=== PATIENT | male | born 1975 | race Caucasian/White ===

== ENCOUNTER 2018-02-01 09:08 | Emergency (ER) | payer OTHER ==
[~2018-02-01] VITALS: Ht 190.5 cm; Wt 86.0 kg
[2018-02-01] MEDS ORDERED: MORPHINE SULFATE 4 MG/ML CPJ (NOT FOR IM USE) IV STA (10:25)
[2018-02-01] MEDS ORDERED: ONDANSETRON HCL 4MG/2ML VIAL IV STA (10:25)
[2018-02-01 11:54] LABS: HEMATOCRIT. 44.9 % (42.0-52.0); HEMOGLOBIN. 15.3 g/dL (14.0-18.0); MEAN CORPUSCULAR HEMOGLOBIN 31.1 pg (28.0-32.0); MEAN PLATELET VOLUME 8.5 fl (7.4-10.4); PLATELET 273 x1000/uL (130-400); RED BLOOD CELL COUNT 4.93 mill/uL (4.7-6.1)
[2018-02-01 11:55] LABS: CHLORIDE 106 mEq/L (98-107)
[2018-02-01 12:02] LABS: INR 1.1; PROTHROMBIN TIME 10.6 sec (9.1-11.1)
[2018-02-01 12:06] LABS: CLARITY URINE CLEAR (CLEAR); COLOR URINE YELLOW (YELLOW); KETONES URINE NEGATIVE (NEGATIVE); LEUKOCYTE ESTERASE URINE NEGATIVE (NEGATIVE); NITRITE URINE NEGATIVE (NEGATIVE); OCCULT BLOOD URINE NEGATIVE (NEGATIVE); PROTEIN URINE NEGATIVE (NEGATIVE); SPECIFIC GRAVITY URINE 1.025 (1.005-1.030)
[2018-02-01 12:29] LABS: PLATELET ESTIMATE NORMAL
[2018-02-01] MEDS ORDERED: KETOROLAC 30MG/ML VIAL IV ONE (12:30)
[2018-02-01] MEDS ORDERED: SODIUM CHLORIDE 0.9% 1,000 ML IV ONE (12:30)
[2018-02-01 13:22] LABS: CREATINE KINASE 94 IU/L (39-308)
[2018-02-01 13:57] VITALS: BP 110/68
[2018-02-02] MEDS ORDERED: FINA1TAB18 MT (18:41)
== END 2018-02-01 14:23 | disposition home or self-care (01) ==
LOC: ER 09:08
DX: R10.31 Right lower quadrant pain (principal); R03.0 Elevated blood-pressure reading, without diagnosis of hypertension
CPT/HCPCS: 36415; 74176; 80053; 81003; 82550; 83690; 85025; 85610; 96374; 96375; 99285; J1885; J2270; J2405; J7030; Z7610